=== PATIENT | male | born 1945 | race Caucasian/White ===

== ENCOUNTER 2016-12-21 00:39 | Inpatient (IN) | payer MEDICARE, MEDICAID ==
[~2016-12-21] VITALS: Ht 172.7 cm; Wt 71.2 kg
[2016-12-22] VITALS (703 sets, daily range): BP systolic 106–217; BP diastolic 75–114; PULSE 71–86; TEMP 97–98.8; O2SAT 84–100
[2016-12-22] MEDS ORDERED: OMNIPRED 5 ML5 ML OP (01:32)
[2016-12-22] MEDS ORDERED: FLOXIN OTIC DROP5 ML OP (01:34)
[2016-12-22] MEDS ORDERED: TRAVATAN Z 2.52.5 ML OD (01:35)
[2016-12-22] MEDS ORDERED: COMBIGAN 0.2%-0.5 ML OU (01:35)
[2016-12-22] MEDS ORDERED: AKTOB 5 ML5 ML OP (01:36)
[2016-12-22] MEDS ORDERED: ACULAR 5 ML5 ML OU (01:37)
[2016-12-22] MEDS ORDERED: FLONASE NASAL S16 GM NS (01:41)
[2016-12-22] MEDS ORDERED: TESSALON PERLE200 MG PO (01:42)
[2016-12-22] MEDS ORDERED: XANAX .25M0.25 MG/TA PO (01:46)
[2016-12-22] MEDS ORDERED: CHERATUSSIN AC120 ML PO (01:47)
[2016-12-22] MEDS ORDERED: ANTIVERT 25MG25 MG PO (01:49)
[2016-12-22] MEDS ORDERED: CATAPRES 0.1MG0.1 MG PO (01:51)
[2016-12-22] MEDS ORDERED: TYLENOL 500MG500 MG PO (01:52)
[2016-12-22] MEDS ORDERED: NORVASC 10MG10 MG PO (01:53)
[2016-12-22] MEDS ORDERED: CEPHALEXIN500 M1 PO (01:54)
[2016-12-22] MEDS ORDERED: LOPRESSOR 550 MG/TAB PO (01:55)
[2016-12-22 05:59] LABS: BASO # 0.1 (0.0-0.2); BASO % 0.7 % (0.0-2.0); EOS # 0.1 (0.0-0.7); EOS % 0.9 % (0-4.0); GRAN # 5.3 (1.4-6.5); GRAN % 77.9 % (42.2-75.2); LYMPH # 0.9 (1.2-3.4); LYMPH % 12.9 % (20.0-51.0); MEAN CELL VOLUME 88 fl (80.0-100.0); MEAN CORPUSCULAR HGB CONC 31 g/dl (33.0-37.0); MONO # 0.5 (0.1-0.6); MONO % 7.2 % (1.7-9.3); PLATELET COUNT 191 K/mm3 (130-400); RED BLOOD COUNT 3.78 M/mm3 (4.20-5.60); REDCELL DISTRIBUTION WIDTH-CV 19.3 % (11.5-14.5); WHITE BLOOD COUNT 6.8 K/mm3 (4.8-10.8)
[2016-12-22 06:00] LABS: HEMOGLOBIN 10.5 g/dl (13.5-18.0); MEAN CORPUSCULAR HEMOGLOBIN 28 pg (27.0-31.0)
[2016-12-22 06:01] LABS: HEMATOCRIT 33.4 % (42.0-52.0)
[2016-12-22 06:14] LABS: ADJUSTED CALCIUM 9.8 mg/dL (8.4-10.2); ALBUMIN 3.8 gm/dL (3.5-5.0); BILIRUBIN,TOTAL 1.1 mg/dL (0.0-1.0); CALCIUM 9.6 mg/dL (8.4-10.2); POTASSIUM 5.4 mmol/L (3.4-5.0); TOTAL PROTEIN 7.1 gm/dL (6.4-8.2)
[2016-12-22] MEDS ORDERED: TOPROL XL 50MG50 MG PO (06:48)
[2016-12-22 06:52] LABS: CREATININE, serum 10.51 mg/dL (0.66-1.25)
[2016-12-23 03:40] VITALS: BP 172/82; PULSE 64; TEMP 97.5
[2016-12-23 07:46] LABS: BASO % 0.3 % (0.0-2.0); EOS % 0.4 % (0-4.0); GRAN # 5.8 (1.4-6.5); GRAN % 79.3 % (42.2-75.2); LYMPH # 0.9 (1.2-3.4); LYMPH % 11.8 % (20.0-51.0); MEAN CELL VOLUME 90 fl (80.0-100.0); MEAN CORPUSCULAR HGB CONC 31 g/dl (33.0-37.0); MEAN PLATELET VOLUME 12.1 fl (7.4-10.4); MONO # 0.6 (0.1-0.6); MONO % 7.7 % (1.7-9.3); PLATELET COUNT 139 K/mm3 (130-400); RED BLOOD COUNT 3.88 M/mm3 (4.20-5.60); REDCELL DISTRIBUTION WIDTH-CV 19.5 % (11.5-14.5); WHITE BLOOD COUNT 7.4 K/mm3 (4.8-10.8)
[2016-12-23 07:55] VITALS: BP 143/66; PULSE 66; TEMP 98.8
[2016-12-23 08:34] LABS: HEMOGLOBIN 10.9 g/dl (13.5-18.0); MEAN CORPUSCULAR HEMOGLOBIN 28 pg (27.0-31.0)
[2016-12-23 09:33] LABS: POTASSIUM 4.8 mmol/L (3.4-5.0)
[2016-12-23 09:36] LABS: CREATININE, serum 7.92 mg/dL (0.66-1.25)
[2016-12-23 14:31] VITALS: BP 149/84; PULSE 68; TEMP 97.4
[2016-12-23 15:41] VITALS: BP 153/69; PULSE 60; TEMP 98.5
[2016-12-23 19:30] VITALS: BP 146/66; PULSE 66; TEMP 98.2
[2016-12-24] VITALS: BP 151/78; PULSE 67; TEMP 98.1
[2016-12-24 04:16] VITALS: BP 154/71; PULSE 75; TEMP 97.1
[2016-12-24 07:40] VITALS: BP 152/71; PULSE 63; TEMP 97.8
[2016-12-24 11:42] VITALS: BP 143/73; PULSE 60; TEMP 98.2
[2016-12-24 16:33] VITALS: BP 143/63; PULSE 71; TEMP 98.3
[2016-12-24 20:21] VITALS: BP 171/77; PULSE 63; TEMP 98.7
[2016-12-25 00:17] VITALS: BP 198/78; PULSE 70; TEMP 98.7
[2016-12-25 00:54] VITALS: BP 139/72
[2016-12-25 04:22] VITALS: BP 171/88; PULSE 66; TEMP 98
[2016-12-25 07:01] LABS: BASO % 0.5 % (0.0-2.0); EOS # 0.2 (0.0-0.7); EOS % 2.8 % (0-4.0); GRAN # 4.3 (1.4-6.5); GRAN % 69.4 % (42.2-75.2); LYMPH % 16.3 % (20.0-51.0); MEAN CELL VOLUME 88 fl (80.0-100.0); MEAN CORPUSCULAR HGB CONC 31 g/dl (33.0-37.0); MEAN PLATELET VOLUME 10.8 fl (7.4-10.4); MONO # 0.7 (0.1-0.6); MONO % 10.7 % (1.7-9.3); PLATELET COUNT 183 K/mm3 (130-400); RED BLOOD COUNT 3.67 M/mm3 (4.20-5.60); REDCELL DISTRIBUTION WIDTH-CV 18.4 % (11.5-14.5); WHITE BLOOD COUNT 6.1 K/mm3 (4.8-10.8)
[2016-12-25 07:21] LABS: ALBUMIN 3.4 gm/dL (3.5-5.0); CALCIUM 8.6 mg/dL (8.4-10.2); POTASSIUM 4.6 mmol/L (3.4-5.0)
[2016-12-25 07:25] LABS: HEMATOCRIT 32.2 % (42.0-52.0); MEAN CORPUSCULAR HEMOGLOBIN 27 pg (27.0-31.0)
[2016-12-25 07:40] LABS: CREATININE, serum 9.16 mg/dL (0.66-1.25)
[2016-12-25 08:26] VITALS: BP 179/83; PULSE 96; TEMP 98.6
[2016-12-25] MEDS ORDERED: CATAPRES 0.1MG0.1 MG PO (14:59)
[2016-12-25] MEDS ORDERED: NITRO-BID22 TD (14:59)
[2016-12-25] MEDS ORDERED: LOPRESSOR100 MG PO (14:59)
[2016-12-25 16:27] VITALS: BP 154/64; PULSE 56; TEMP 97.9
== END 2016-12-25 20:49 | disposition home or self-care (01) | DRG 189 ==
LOC: IMCU 00:39 → ICU 12-22 01:05 → MEDICAL 12-22 01:05
PROVIDERS: Family Medicine; Internal Medicine Nephrology
PROC: 5A1D60Z (ICD-10-PCS; principal; 2016-12-23)
DX: J96.01 Acute respiratory failure with hypoxia (principal); N18.6 End stage renal disease; I13.2 Hypertensive heart and chronic kidney disease with heart failure and with stage 5 chronic kidney disease, or end stage renal disease; I50.30 Unspecified diastolic (congestive) heart failure; I16.0 Hypertensive urgency; E87.70 Fluid overload, unspecified; D63.1 Anemia in chronic kidney disease; Z99.2 Dependence on renal dialysis; Z91.15 Patient's noncompliance with renal dialysis
CPT/HCPCS: 99223-AI; 99232-AI; 99233-AI; 99239; J0360; J1644

== ENCOUNTER 2017-01-13 16:56 | Inpatient (IN) | payer MEDICARE, MEDICAID ==
[~2017-01-13] VITALS: Ht 172.7 cm; Wt 68.1 kg
[2017-01-13] VITALS (173 sets, daily range): BP systolic 203; BP diastolic 111; PULSE 63; TEMP 97.1; O2SAT 77–100
[~2017-01-13 16:56] MED LIST: ACULAR 5 ML5 ML OU; AKTOB 5 ML5 ML OP; ANTIVERT 25MG25 MG PO; CATAPRES 0.1MG0.1 MG PO; CEPHALEXIN500 M1 PO; CHERATUSSIN AC120 ML PO; COMBIGAN 0.2%-0.5 ML OU; FLONASE NASAL S16 GM NS; FLOXIN OTIC DROP5 ML OP; LOPRESSOR 550 MG/TAB PO; LOPRESSOR100 MG PO; NITRO-BID22 TD; NORVASC 10MG10 MG PO; OMNIPRED 5 ML5 ML OP; TESSALON PERLE200 MG PO; TOPROL XL 50MG50 MG PO; TRAVATAN Z 2.52.5 ML OD; TYLENOL 500MG500 MG PO; XANAX .25M0.25 MG/TA PO
[2017-01-13 18:46] LABS: BASO % 0.3 % (0.0-2.0); EOS # 0.1 (0.0-0.7); EOS % 0.7 % (0-4.0); GRAN # 5.5 (1.4-6.5); GRAN % 79.6 % (42.2-75.2); HEMATOCRIT 33.1 % (42.0-52.0); HEMOGLOBIN 10.6 g/dl (13.5-18.0); LYMPH # 0.9 (1.2-3.4); LYMPH % 12.9 % (20.0-51.0); MEAN CELL VOLUME 89 fl (80.0-100.0); MEAN CORPUSCULAR HEMOGLOBIN 28 pg (27.0-31.0); MEAN CORPUSCULAR HGB CONC 32 g/dl (33.0-37.0); MEAN PLATELET VOLUME 9.6 fl (7.4-10.4); MONO # 0.4 (0.1-0.6); MONO % 6.2 % (1.7-9.3); PLATELET COUNT 173 K/mm3 (130-400); RED BLOOD COUNT 3.73 M/mm3 (4.20-5.60); REDCELL DISTRIBUTION WIDTH-CV 18.6 % (11.5-14.5); WHITE BLOOD COUNT 6.9 K/mm3 (4.8-10.8)
[2017-01-13 18:49] LABS: INR 1.2 (0.8-3.0)
[2017-01-13 18:51] LABS: PARTIAL THROMBOPLASTIN TIME 27.7 SECONDS (26.0-37.0)
[2017-01-13 18:55] LABS: ADJUSTED CALCIUM 9.7 mg/dL (8.4-10.2); ALBUMIN 4.1 gm/dL (3.5-5.0); BILIRUBIN,TOTAL 1.1 mg/dL (0.0-1.0); CALCIUM 9.8 mg/dL (8.4-10.2); POTASSIUM 4.6 mmol/L (3.4-5.0)
[2017-01-13 18:59] LABS: CREATININE, serum 5.36 mg/dL (0.66-1.25)
[2017-01-13 19:08] LABS: TROPONIN-I 0.088 ng/mL (0.000-0.034)
[2017-01-13] MEDS ORDERED: IMDUR 30MG30 MG/TAB PO (22:43)
[2017-01-14] VITALS (998 sets, daily range): BP systolic 131–210; BP diastolic 73–115; PULSE 50–66; TEMP 97.1–98.9; O2SAT 77–100
[2017-01-14 12:02] LABS: ALBUMIN 3.9 gm/dL (3.5-5.0); CALCIUM 9.6 mg/dL (8.4-10.2); PHOSPHOROUS 4.9 mg/dL (2.5-4.5); POTASSIUM 4.2 mmol/L (3.4-5.0)
[2017-01-14 12:05] LABS: CREATININE, serum 4.99 mg/dL (0.66-1.25)
[2017-01-15 07:07] LABS: ALBUMIN 4.3 gm/dL (3.5-5.0); CALCIUM 9.8 mg/dL (8.4-10.2); PHOSPHOROUS 4.5 mg/dL (2.5-4.5); POTASSIUM 4.8 mmol/L (3.4-5.0)
[2017-01-15 07:27] LABS: CREATININE, serum 4.73 mg/dL (0.66-1.25)
[2017-01-15 08:26] VITALS: BP 174/80; PULSE 65; TEMP 98.8
[2017-01-15 12:41] VITALS: BP 168/95; PULSE 59; TEMP 97.3
[2017-01-15 16:24] VITALS: BP 155/92; PULSE 62; TEMP 97.8
[2017-01-15 19:39] VITALS: BP 137/85; PULSE 54; TEMP 98.1
[2017-01-15 23:21] VITALS: BP 160/89; PULSE 57; TEMP 97.1
[2017-01-16 03:31] VITALS: BP 194/91; PULSE 65; TEMP 97.8
[2017-01-16 04:33] VITALS: BP 197/71; PULSE 60
[2017-01-16 07:42] VITALS: BP 176/86; PULSE 50; TEMP 98.1
[2017-01-16 12:52] VITALS: BP 194/73; PULSE 55; TEMP 97.8
== END 2017-01-16 19:30 | disposition home or self-care (01) | DRG 291 ==
LOC: COL.ER 16:56 → ICU 19:46 → MEDICAL 19:46
PROVIDERS: Emergency Medicine; Internal Medicine Nephrology
PROC: 5A1D60Z (ICD-10-PCS; principal; 2017-01-13)
DX: I13.2 Hypertensive heart and chronic kidney disease with heart failure and with stage 5 chronic kidney disease, or end stage renal disease (principal); N18.6 End stage renal disease; I50.33 Acute on chronic diastolic (congestive) heart failure; I16.0 Hypertensive urgency; Z99.2 Dependence on renal dialysis; D63.1 Anemia in chronic kidney disease; Z91.14 Patient's other noncompliance with medication regimen
CPT/HCPCS: J2060

== ENCOUNTER 2017-02-04 22:49 | Inpatient (IN) | payer MEDICARE, MEDICAID ==
[~2017-02-04] VITALS: Ht 172.7 cm; Wt 65.4 kg
[~2017-02-04 22:49] MED LIST changes: +IMDUR 30MG30 MG/TAB PO
[2017-02-05] VITALS (859 sets, daily range): BP systolic 121–192; BP diastolic 70–114; PULSE 57–81; TEMP 97.3–98.3; O2SAT 70–100
[2017-02-05] LABS: BASO % 0.5 % (0.0-2.0); EOS # 0.1 (0.0-0.7); GRAN # 6.8 (1.4-6.5); GRAN % 82.6 % (42.2-75.2); LYMPH # 0.7 (1.2-3.4); LYMPH % 8.9 % (20.0-51.0); MEAN CELL VOLUME 90 fl (80.0-100.0); MEAN CORPUSCULAR HGB CONC 33 g/dl (33.0-37.0); MEAN PLATELET VOLUME 10.4 fl (7.4-10.4); MONO # 0.5 (0.1-0.6); MONO % 6.6 % (1.7-9.3); PLATELET COUNT 179 K/mm3 (130-400); RED BLOOD COUNT 4.02 M/mm3 (4.20-5.60); REDCELL DISTRIBUTION WIDTH-CV 19.4 % (11.5-14.5); WHITE BLOOD COUNT 8.2 K/mm3 (4.8-10.8)
[2017-02-05 00:02] LABS: HEMOGLOBIN 11.7 g/dl (13.5-18.0); MEAN CORPUSCULAR HEMOGLOBIN 29 pg (27.0-31.0)
[2017-02-05 00:06] LABS: INR 1.2 (0.8-3.0); PROTHROMBIN TIME 13.2 SECONDS (9.7-12.8)
[2017-02-05 00:09] LABS: PARTIAL THROMBOPLASTIN TIME 26.7 SECONDS (26.0-37.0)
[2017-02-05 00:20] LABS: ADJUSTED CALCIUM 9.9 mg/dL (8.4-10.2); ALBUMIN 4.6 gm/dL (3.5-5.0); BILIRUBIN,TOTAL 1.4 mg/dL (0.0-1.0); CALCIUM 10.4 mg/dL (8.4-10.2); MAGNESIUM 2.4 mg/dL (1.6-2.3); PHOSPHOROUS 7.6 mg/dL (2.5-4.5); POTASSIUM 5.2 mmol/L (3.4-5.0); TOTAL PROTEIN 8.3 gm/dL (6.4-8.2)
[2017-02-05 00:21] LABS: CREATININE, serum 7.75 mg/dL (0.66-1.25)
[2017-02-05 00:52] LABS: TROPONIN-I 0.139 ng/mL (0.000-0.034)
[2017-02-06] VITALS (503 sets, daily range): BP systolic 145–212; BP diastolic 81–113; PULSE 52–81; TEMP 98–99.2; O2SAT 51–100
[2017-02-06 06:37] LABS: ALBUMIN 4.3 gm/dL (3.5-5.0); CALCIUM 9.8 mg/dL (8.4-10.2); PHOSPHOROUS 7.1 mg/dL (2.5-4.5); POTASSIUM 4.9 mmol/L (3.4-5.0)
[2017-02-06 06:39] LABS: CREATININE, serum 6.19 mg/dL (0.66-1.25)
[2017-02-07] VITALS (408 sets, daily range): BP systolic 190–209; BP diastolic 109–112; PULSE 60–67; TEMP 98–98.2; O2SAT 30–100
[2017-02-07 05:57] LABS: ALBUMIN 4.7 gm/dL (3.5-5.0); CALCIUM 10.5 mg/dL (8.4-10.2); PHOSPHOROUS 7.3 mg/dL (2.5-4.5); POTASSIUM 4.6 mmol/L (3.4-5.0)
[2017-02-07 06:04] LABS: CREATININE, serum 5.96 mg/dL (0.66-1.25)
[2017-02-07] MEDS ORDERED: COZAAR100 MG PO (11:22)
== END 2017-02-07 12:05 | disposition home or self-care (01) | DRG 640 ==
LOC: COL.ER 22:49 → IMCU 02-05 00:33
PROVIDERS: Emergency Medicine; Internal Medicine Nephrology
PROC: 5A1D60Z (ICD-10-PCS; principal; 2017-02-05)
DX: E87.70 Fluid overload, unspecified (principal); N18.6 End stage renal disease; I12.0 Hypertensive chronic kidney disease with stage 5 chronic kidney disease or end stage renal disease; I16.1 Hypertensive emergency; D63.1 Anemia in chronic kidney disease; Z99.2 Dependence on renal dialysis; Z91.15 Patient's noncompliance with renal dialysis
CPT/HCPCS: J1650; J1940

== ENCOUNTER 2017-02-28 01:17 | Inpatient (IN) | payer MEDICARE, MEDICAID ==
[~2017-02-28] VITALS: Ht 172.7 cm; Wt 67.3 kg
[2017-02-28] VITALS (14 sets, daily range): BP systolic 143–251; BP diastolic 63–156; PULSE 64–98; TEMP 97.6–97.9
[~2017-02-28 01:17] MED LIST changes: +COZAAR100 MG PO
[2017-02-28] MEDS ORDERED: FLOMAX 0.40.4 MG/CAP PO (01:53)
[2017-02-28 02:01] LABS: BASO % 0.4 % (0.0-2.0); EOS # 0.1 (0.0-0.7); EOS % 0.7 % (0-4.0); GRAN # 7.3 (1.4-6.5); GRAN % 80.7 % (42.2-75.2); LYMPH # 1.1 (1.2-3.4); LYMPH % 11.7 % (20.0-51.0); MEAN CELL VOLUME 91 fl (80.0-100.0); MEAN CORPUSCULAR HGB CONC 33 g/dl (33.0-37.0); MEAN PLATELET VOLUME 9.1 fl (7.4-10.4); MONO # 0.6 (0.1-0.6); MONO % 6.1 % (1.7-9.3); PLATELET COUNT 205 K/mm3 (130-400); REDCELL DISTRIBUTION WIDTH-CV 19.7 % (11.5-14.5); WHITE BLOOD COUNT 9.1 K/mm3 (4.8-10.8)
[2017-02-28 02:02] LABS: HEMATOCRIT 35.3 % (42.0-52.0); HEMOGLOBIN 11.5 g/dl (13.5-18.0); MEAN CORPUSCULAR HEMOGLOBIN 29 pg (27.0-31.0)
[2017-02-28 02:15] LABS: ADJUSTED CALCIUM 9.3 mg/dL (8.4-10.2); ALBUMIN 4.4 gm/dL (3.5-5.0); BILIRUBIN,TOTAL 1.1 mg/dL (0.0-1.0); C-REACTIVE PROTEIN 1.1 mg/dL (0.0-0.9); CALCIUM 9.6 mg/dL (8.4-10.2); POTASSIUM 5.6 mmol/L (3.4-5.0); TOTAL PROTEIN 8.4 gm/dL (6.4-8.2)
[2017-02-28 02:22] LABS: CREATININE, serum 7.65 mg/dL (0.66-1.25)
[2017-02-28] MEDS ORDERED: PREDFORTE5ML (03:33)
[2017-03-01 00:21] VITALS: BP 180/58; PULSE 68; TEMP 97.8
[2017-03-01 04:38] VITALS: BP 182/84; PULSE 72; TEMP 98.1
[2017-03-01 08:27] LABS: BASO % 0.4 % (0.0-2.0); EOS # 0.1 (0.0-0.7); EOS % 1.7 % (0-4.0); GRAN # 5.2 (1.4-6.5); GRAN % 73.5 % (42.2-75.2); LYMPH # 1.1 (1.2-3.4); LYMPH % 15.4 % (20.0-51.0); MEAN CELL VOLUME 93 fl (80.0-100.0); MEAN CORPUSCULAR HGB CONC 32 g/dl (33.0-37.0); MEAN PLATELET VOLUME 9.8 fl (7.4-10.4); MONO # 0.6 (0.1-0.6); MONO % 8.4 % (1.7-9.3); PLATELET COUNT 208 K/mm3 (130-400); RED BLOOD COUNT 3.58 M/mm3 (4.20-5.60); REDCELL DISTRIBUTION WIDTH-CV 19.6 % (11.5-14.5); WHITE BLOOD COUNT 7.1 K/mm3 (4.8-10.8)
[2017-03-01 08:36] VITALS: BP 208/85; PULSE 76; TEMP 98.5
[2017-03-01 08:39] LABS: HEMATOCRIT 33.2 % (42.0-52.0); HEMOGLOBIN 10.6 g/dl (13.5-18.0); MEAN CORPUSCULAR HEMOGLOBIN 30 pg (27.0-31.0)
[2017-03-01 09:02] LABS: CALCIUM 9.5 mg/dL (8.4-10.2); POTASSIUM 4.7 mmol/L (3.4-5.0)
[2017-03-01 09:08] LABS: CREATININE, serum 6.13 mg/dL (0.66-1.25)
[2017-03-01] MEDS ORDERED: CATAPRES0.2 MG PO (10:21)
== END 2017-03-01 17:05 | disposition home or self-care (01) | DRG 304 ==
LOC: COL.ER 01:17 → IMCU 02:49 → MEDICAL 05:52 → IMCU 05:52 → MEDICAL 12:28
PROVIDERS: Family Medicine; Internal Medicine
PROC: 5A1D60Z (ICD-10-PCS; principal; 2017-02-28)
DX: I16.1 Hypertensive emergency (principal); N18.6 End stage renal disease; M48.54XA Collapsed vertebra, not elsewhere classified, thoracic region, initial encounter for fracture; E87.70 Fluid overload, unspecified; I12.0 Hypertensive chronic kidney disease with stage 5 chronic kidney disease or end stage renal disease; D63.1 Anemia in chronic kidney disease; E87.5 Hyperkalemia; Z99.2 Dependence on renal dialysis; Z91.15 Patient's noncompliance with renal dialysis
CPT/HCPCS: J1644

== ENCOUNTER 2017-04-05 17:20 | Inpatient (IN) | payer MEDICARE, MEDICAID ==
[~2017-04-05] VITALS: Ht 172.7 cm; Wt 66.2 kg
[~2017-04-05 17:20] MED LIST changes: +CATAPRES0.2 MG PO; +FLOMAX 0.40.4 MG/CAP PO; +PREDFORTE5ML
[2017-04-05 18:18] LABS: BASO # 0.1 (0.0-0.2); BASO % 0.8 % (0.0-2.0); EOS # 0.4 (0.0-0.7); EOS % 5.1 % (0-4.0); GRAN # 5.1 (1.4-6.5); GRAN % 70.7 % (42.2-75.2); LYMPH % 14.1 % (20.0-51.0); MEAN CELL VOLUME 92 fl (80.0-100.0); MEAN CORPUSCULAR HGB CONC 33 g/dl (33.0-37.0); MEAN PLATELET VOLUME 10.2 fl (7.4-10.4); MONO # 0.6 (0.1-0.6); MONO % 8.9 % (1.7-9.3); PLATELET COUNT 191 K/mm3 (130-400); RED BLOOD COUNT 3.61 M/mm3 (4.20-5.60); REDCELL DISTRIBUTION WIDTH-CV 16.6 % (11.5-14.5); WHITE BLOOD COUNT 7.2 K/mm3 (4.8-10.8)
[2017-04-05 18:19] LABS: HEMATOCRIT 33.2 % (42.0-52.0); HEMOGLOBIN 10.8 g/dl (13.5-18.0); MEAN CORPUSCULAR HEMOGLOBIN 30 pg (27.0-31.0)
[2017-04-05 18:29] LABS: INR 1.1 (0.8-3.0); PROTHROMBIN TIME 12.5 SECONDS (9.7-12.8)
[2017-04-05 18:31] LABS: ADJUSTED CALCIUM 9.6 mg/dL (8.4-10.2); ALBUMIN 4.4 gm/dL (3.5-5.0); BILIRUBIN,TOTAL 0.8 mg/dL (0.0-1.0); C-REACTIVE PROTEIN 1.2 mg/dL (0.0-0.9); CALCIUM 9.9 mg/dL (8.4-10.2); TOTAL PROTEIN 8.2 gm/dL (6.4-8.2)
[2017-04-05 18:32] LABS: CREATININE, serum 11.12 mg/dL (0.66-1.25); PARTIAL THROMBOPLASTIN TIME 35.7 SECONDS (26.0-37.0)
[2017-04-05 18:33] LABS: POTASSIUM 5.9 mmol/L (3.4-5.0)
[2017-04-05] MEDS ORDERED: IRON325 MG PO (18:37)
[2017-04-05] MEDS ORDERED: SENSIPAR30 MG PO (18:38)
[2017-04-05] MEDS ORDERED: VITAMIN C500 MG PO (18:38)
[2017-04-05] MEDS ORDERED: CALPHRON667 MG PO (18:39)
[2017-04-05] MEDS ORDERED: DIAMOX SEQUELS500 M1 PO (18:40)
[2017-04-05] MEDS ORDERED: PHOS LO (18:40)
[2017-04-05] MEDS ORDERED: OXY IR5 MG PO (18:43)
[2017-04-05 18:44] LABS: TROPONIN-I 0.068 ng/mL (0.000-0.034)
[2017-04-05 19:39] LABS: PH 9 (5-8); SQUAMOUS EPITHELIAL 0-2 /hpf; URINE APPEARANCE Clear; URINE BACTERIA None Seen /hpf; URINE BILIRUBIN Negative (NEGATIVE); URINE BLOOD Negative (NEGATIVE); URINE COLOR Straw; URINE GLUCOSE 1+ (NEGATIVE); URINE KETONE Negative (NEGATIVE); URINE RBC 0-2 /hpf; URINE UROBILINOGEN Negative (NEGATIVE); URINE WBC 0-2 /hpf
[2017-04-05 23:24] VITALS: BP 167/83; PULSE 57; TEMP 98.9
[2017-04-06 02:59] VITALS: BP 175/87; PULSE 42; TEMP 98.8
[2017-04-06 07:29] VITALS: BP 216/95; PULSE 73; TEMP 97.9
[2017-04-06 09:16] VITALS: BP 220/102; PULSE 66
[2017-04-06 10:51] VITALS: BP 234/107; PULSE 61; TEMP 97.9
[2017-04-06 15:51] LABS: BASO % 0.6 % (0.0-2.0); EOS # 0.2 (0.0-0.7); EOS % 3.2 % (0-4.0); GRAN # 5.3 (1.4-6.5); LYMPH # 0.8 (1.2-3.4); LYMPH % 11.6 % (20.0-51.0); MEAN CELL VOLUME 91 fl (80.0-100.0); MEAN CORPUSCULAR HGB CONC 33 g/dl (33.0-37.0); MEAN PLATELET VOLUME 10.5 fl (7.4-10.4); MONO # 0.5 (0.1-0.6); MONO % 7.2 % (1.7-9.3); PLATELET COUNT 190 K/mm3 (130-400); REDCELL DISTRIBUTION WIDTH-CV 16.9 % (11.5-14.5); WHITE BLOOD COUNT 6.8 K/mm3 (4.8-10.8)
[2017-04-06 15:52] LABS: HEMATOCRIT 31.9 % (42.0-52.0); HEMOGLOBIN 10.6 g/dl (13.5-18.0); MEAN CORPUSCULAR HEMOGLOBIN 30 pg (27.0-31.0)
[2017-04-06 16:39] LABS: CALCIUM 9.6 mg/dL (8.4-10.2); PHOSPHOROUS 7.3 mg/dL (2.5-4.5); POTASSIUM 4.7 mmol/L (3.4-5.0)
[2017-04-06 16:40] LABS: CREATININE, serum 9.76 mg/dL (0.66-1.25)
[2017-04-06 20:10] VITALS: BP 165/84; PULSE 55; TEMP 98.5
[2017-04-06 22:35] VITALS: BP 167/86; PULSE 60; TEMP 98
[2017-04-07 02:35] VITALS: BP 160/82; PULSE 60; TEMP 98.9
[2017-04-07 07:31] VITALS: BP 147/68; PULSE 53; TEMP 98.1
[2017-04-07 08:24] LABS: ALBUMIN 3.9 gm/dL (3.5-5.0); CALCIUM 9.4 mg/dL (8.4-10.2); PHOSPHOROUS 6.1 mg/dL (2.5-4.5); POTASSIUM 4.9 mmol/L (3.4-5.0)
[2017-04-07 08:35] LABS: CREATININE, serum 7.15 mg/dL (0.66-1.25)
[2017-04-07 11:13] VITALS: BP 162/79; PULSE 51; TEMP 97.5
[2017-04-07 15:20] VITALS: BP 128/62; PULSE 51; TEMP 97.8
[2017-04-07 19:23] VITALS: BP 161/77; PULSE 58; TEMP 98.6
[2017-04-07 22:45] VITALS: BP 135/68; PULSE 59; TEMP 98.5
[2017-04-08 02:54] VITALS: BP 133/58; PULSE 50; TEMP 98.5
[2017-04-08 07:49] VITALS: BP 166/78; PULSE 58; TEMP 97
[2017-04-08 08:36] LABS: ALBUMIN 4.4 gm/dL (3.5-5.0); CALCIUM 9.5 mg/dL (8.4-10.2); PHOSPHOROUS 7.7 mg/dL (2.5-4.5); POTASSIUM 4.8 mmol/L (3.4-5.0)
[2017-04-08 08:41] LABS: CREATININE, serum 9.15 mg/dL (0.66-1.25)
[2017-04-08 11:57] VITALS: BP 111/57; PULSE 46; TEMP 98.9
[2017-04-08 17:03] VITALS: BP 146/67; PULSE 52; TEMP 98.9
[2017-04-08 19:51] VITALS: BP 138/65; PULSE 57; TEMP 98.7
[2017-04-08 23:35] VITALS: BP 99/53; PULSE 48; TEMP 98.7
[2017-04-09 03:18] VITALS: BP 130/60; PULSE 48; TEMP 98.7
[2017-04-09 07:28] LABS: ALBUMIN 4.3 gm/dL (3.5-5.0); CALCIUM 8.9 mg/dL (8.4-10.2); PHOSPHOROUS 6.1 mg/dL (2.5-4.5); POTASSIUM 4.4 mmol/L (3.4-5.0)
[2017-04-09 07:35] LABS: CREATININE, serum 7.11 mg/dL (0.66-1.25)
[2017-04-09 08:29] VITALS: BP 172/79; PULSE 58; TEMP 98.4
[2017-04-09] MEDS ORDERED: CELEBREX 200MG200 MG PO (11:30)
[2017-04-09] MEDS ORDERED: PAXIL 10MG10 MG PO (11:32)
[2017-04-09 13:46] VITALS: BP 111/61; PULSE 50; TEMP 98.2
[2017-04-09 15:50] VITALS: BP 135/59; PULSE 51; TEMP 98.6
[2017-04-09 20:27] VITALS: BP 129/52; PULSE 55; TEMP 98.4
[2017-04-09 23:27] VITALS: BP 140/68; PULSE 51; TEMP 98.5
[2017-04-10 03:14] VITALS: BP 138/63; PULSE 58; TEMP 98.6
[2017-04-10 07:17] VITALS: BP 159/67; PULSE 58; TEMP 97.9
[2017-04-10 07:59] LABS: ALBUMIN 4.1 gm/dL (3.5-5.0); CALCIUM 8.6 mg/dL (8.4-10.2); POTASSIUM 4.8 mmol/L (3.4-5.0)
[2017-04-10 08:00] LABS: CREATININE, serum 6.83 mg/dL (0.66-1.25)
[2017-04-10] MEDS ORDERED: LOPRESSOR 550 MG/TAB PO (11:14)
[2017-04-10 11:21] VITALS: BP 99/63; PULSE 86; TEMP 98.2
[2017-04-10 11:33] VITALS: BP 135/81; PULSE 23; TEMP 97.7
== END 2017-04-10 15:32 | disposition home health service (06) | DRG 682 ==
LOC: COL.ER 17:20 → MEDICAL 19:29
PROVIDERS: Emergency Medicine; Internal Medicine Nephrology
PROC: 5A1D60Z (ICD-10-PCS; principal; 2017-04-05)
DX: I12.0 Hypertensive chronic kidney disease with stage 5 chronic kidney disease or end stage renal disease (principal); N18.6 End stage renal disease; N25.81 Secondary hyperparathyroidism of renal origin; Z99.2 Dependence on renal dialysis; Z91.15 Patient's noncompliance with renal dialysis; I16.0 Hypertensive urgency; F32.9 Major depressive disorder, single episode, unspecified; D63.1 Anemia in chronic kidney disease
CPT/HCPCS: OP; J1815; J2270; J2405; J7050

== ENCOUNTER 2017-07-05 09:53 | Outpatient (CLI) | payer MEDICARE, MEDICAID ==
[2017-07-05] VITALS (10 sets, daily range): BP systolic 151–199; BP diastolic 75–105; PULSE 80–96; TEMP 98
[~2017-07-05] VITALS: Ht 172.7 cm; Wt 68.6 kg
[~2017-07-05 09:53] MED LIST changes: +CALPHRON667 MG PO; +CELEBREX 200MG200 MG PO; +DIAMOX SEQUELS500 M1 PO; +IRON325 MG PO; +OXY IR5 MG PO; +PAXIL 10MG10 MG PO; +PHOS LO; +SENSIPAR30 MG PO; +VITAMIN C500 MG PO
[2017-07-05] MEDS ORDERED: LOPRESSOR 550 MG/TAB PO (12:06)
[2017-07-05] MEDS ORDERED: CATAPRES 0.1MG0.1 MG PO (12:07)
== END 2017-07-05 18:05 | disposition home or self-care (01) ==
LOC: COL.CAR 09:53
DX: T82.590A Other mechanical complication of surgically created arteriovenous fistula, initial encounter (principal); I12.0 Hypertensive chronic kidney disease with stage 5 chronic kidney disease or end stage renal disease; N18.6 End stage renal disease; D64.9 Anemia, unspecified
CPT/HCPCS: C1725; C1769; C1887; C1894; J0360; J1644; J2250; J3010; Q9967

== ENCOUNTER 2017-07-12 20:28 | Inpatient (IN) | payer MEDICARE, MEDICAID ==
[~2017-07-12] VITALS: Ht 172.7 cm; Wt 70.4 kg
[2017-07-12] MEDS ORDERED: VITAMIN C500 MG PO (21:16)
[2017-07-12] MEDS ORDERED: IMDUR 30MG30 MG/TAB PO (21:17)
[2017-07-12] MEDS ORDERED: FLOMAX 0.40.4 MG/CAP PO (21:17)
[2017-07-12] MEDS ORDERED: NORVASC 10MG10 MG PO (21:18)
[2017-07-12] MEDS ORDERED: PHOSLO667 MG PO (21:18)
[2017-07-12] MEDS ORDERED: EZFE 200200 MG (21:19)
[2017-07-12] MEDS ORDERED: COZAAR100 MG PO (21:20)
[2017-07-12 21:49] LABS: BASO % 0.3 % (0.0-2.0); EOS # 0.1 (0.0-0.7); GRAN # 4.7 (1.4-6.5); GRAN % 78.2 % (42.2-75.2); LYMPH # 0.8 (1.2-3.4); LYMPH % 13.6 % (20.0-51.0); MEAN CELL VOLUME 98 fl (80.0-100.0); MEAN CORPUSCULAR HGB CONC 33 g/dl (33.0-37.0); MEAN PLATELET VOLUME 12.1 fl (7.4-10.4); MONO # 0.3 (0.1-0.6); MONO % 5.6 % (1.7-9.3); PLATELET COUNT 54 K/mm3 (130-400); RED BLOOD COUNT 2.94 M/mm3 (4.20-5.60); REDCELL DISTRIBUTION WIDTH-CV 14.4 % (11.5-14.5)
[2017-07-12 21:51] LABS: HEMATOCRIT 28.7 % (42.0-52.0); HEMOGLOBIN 9.4 g/dl (13.5-18.0); MEAN CORPUSCULAR HEMOGLOBIN 32 pg (27.0-31.0)
[2017-07-12 23:07] LABS: ADJUSTED CALCIUM 9.1 mg/dL (8.4-10.2); ALANINE AMINOTRANSFERASE 13 U/L (21-72); ALBUMIN 4.3 gm/dL (3.5-5.0); ALKALINE PHOSPHATASE 62 U/L (50-136); ANION GAP 19 mmol/L (7-16); BILIRUBIN,TOTAL 0.6 mg/dL (0.0-1.0); BLOOD UREA NITROGEN 82 mg/dL (9-20); CALCIUM 9.3 mg/dL (8.4-10.2); CARBON DIOXIDE 21 mmol/L (22-30); CHLORIDE 100 mmol/L (98-107); GLUCOSE 89 mg/dL (74-106); SODIUM 140 mmol/L (137-145); TOTAL PROTEIN 7.8 gm/dL (6.4-8.2)
[2017-07-12 23:08] LABS: C-REACTIVE PROTEIN < 0.5 mg/dL (0.0-0.9); CREATININE, serum 9.91 mg/dL (0.66-1.25); POTASSIUM 6.3 mmol/L (3.4-5.0)
[2017-07-13 02:12] VITALS: BP 202/95; PULSE 86; TEMP 98
[2017-07-13 04:01] VITALS: BP 171/83; PULSE 87; TEMP 97.3
[2017-07-13 08:30] LABS: CALCIUM 9.2 mg/dL (8.4-10.2); MAGNESIUM 2.1 mg/dL (1.6-2.3); PHOSPHOROUS 7.6 mg/dL (2.5-4.5); POTASSIUM 5.4 mmol/L (3.4-5.0)
[2017-07-13 08:32] LABS: CREATININE, serum 10.5 mg/dL (0.66-1.25)
[2017-07-13 11:45] VITALS: BP 183/93; PULSE 77; TEMP 98.2
[2017-07-13 16:20] VITALS: BP 172/78; PULSE 81; TEMP 97.4
[2017-07-13 20:04] VITALS: BP 195/82; PULSE 83; TEMP 98.1
[2017-07-14 00:44] VITALS: BP 236/104; PULSE 101; TEMP 98.1
[2017-07-14 05:05] VITALS: BP 204/107; PULSE 92; TEMP 98
[2017-07-14 06:23] LABS: ALBUMIN 4.2 gm/dL (3.5-5.0); CALCIUM 9.2 mg/dL (8.4-10.2); POTASSIUM 5.7 mmol/L (3.4-5.0)
[2017-07-14 06:29] LABS: CREATININE, serum 7.77 mg/dL (0.66-1.25)
[2017-07-14 08:04] VITALS: BP 213/87; PULSE 84; TEMP 97.5
[2017-07-14 11:15] VITALS: BP 190/93; PULSE 87; TEMP 97.7
== END 2017-07-14 16:55 | disposition home or self-care (01) | DRG 640 ==
LOC: COL.ER 20:28 → MEDICAL 07-13 00:32
PROVIDERS: Emergency Medicine; Internal Medicine Nephrology
PROC: 5A1D00Z (ICD-10-PCS; principal; 2017-07-13)
DX: E87.5 Hyperkalemia (principal); N18.6 End stage renal disease; I12.0 Hypertensive chronic kidney disease with stage 5 chronic kidney disease or end stage renal disease; J90 Pleural effusion, not elsewhere classified; I16.0 Hypertensive urgency; D63.1 Anemia in chronic kidney disease; E87.70 Fluid overload, unspecified; K40.90 Unilateral inguinal hernia, without obstruction or gangrene, not specified as recurrent; I27.2 Other secondary pulmonary hypertension; Z99.2 Dependence on renal dialysis; Z91.14 Patient's other noncompliance with medication regimen
CPT/HCPCS: J0881; J1815